=== PATIENT | male | born 1960 ===

== ENCOUNTER 2021-02-04 18:00 | Outpatient (CLI) | payer OTHER | END 2021-02-04 18:01 | disposition home or self-care (01) | LOC: SLEEPLAB 18:00 | PROVIDERS: ATTEND Family Medicine | DX: G47.33 Obstructive sleep apnea (adult) (pediatric) (principal); R53.83 Other fatigue; R06.83 Snoring; G47.00 Insomnia, unspecified | CPT/HCPCS: 95806 ==